=== PATIENT | male | born 1950 | race Caucasian/White ===

== ENCOUNTER 2022-09-25 00:12 | Inpatient (IN) | payer OTHER, SELFPAY ==
[2022-09-25] VITALS (10 sets, daily range): BP systolic 119–176; BP diastolic 62–97; PULSE 86–102; RESP 14–18; TEMP 36.5–37.7; O2SAT 93–96; BMI 30.5; BMI 28.9
--- NOTE | 2022-09-25 00:46 | CT_ITS ---
EXAM: CT LEFT LOWER EXTREMITY WITHOUT INTRAVENOUS CONTRAST CLINICAL INDICATION: knee swelling TECHNIQUE: Helically acquired images were obtained of the left lower extremity without intravenous contrast. 2-D reformats were performed by the technologist. This CT exam was performed using one or more of the following dose reduction techniques: automated exposure control, adjustment of the mA and/or kV according to patient size, and/or use of iterative reconstruction technique. This report was created using [employer] report generation technology. CONTRAST: IV 100mL Isovue-370 COMPARISON: None. FINDINGS: BONES/JOINTS: Unremarkable. No acute fracture. No subluxation. Normal alignment. No sclerotic or destructive changes. No effusion or other abnormality identified within the joint space. SOFT TISSUES: Prepatellar subcutaneous inflammation and rim-enhancing fluid collection, measuring 4 x 1.2 x 1 cm. No air within the soft tissues. No radiopaque foreign body. CT/Extremity Lower WITH Contrast IMPRESSION: 1. Prepatellar subcutaneous inflammation and rim-enhancing fluid collection, measuring 4 x 1.2 x 1 cm. This likely indicates an abscess. 2. No effusion or other abnormality identified within the joint space. 3. No acute osseous abnormality. Electronically Signed: Fredrick Barrera MD at 2:24 EST ,
[2022-09-25] MEDS: Morphine 4 MG/ML Syringe IV (00:56)
[2022-09-25] MEDS: 0.9% Normal Saline 1,000 ML 999 ML IV ×2 (00:56→03:01)
[2022-09-25] MEDS: Ondansetron 4 MG/2 ML Vial IV (00:56)
--- NOTE | 2022-09-25 01:23 | ED.VIS.LOWEX ---
HPI History of Present Illness Chief Complaint: Lower Extremity Injury Narrative Narrative: 71-year-old male presenting with left knee pain. He states that last Saturday he was drugged by a horse injuring the left knee. He had some superficial abrasions. Initially able to ambulate but did have some pain. He notes increased swelling to the patella since then. He has trouble with weightbearing. Patient states he saw his primary care physician today who gave him a strong shot. He put him on Bactrim as well. Patient states that the pain increased that he was put come to the emergency room. He was not referred to orthopedics. [facility] Home Medications NK 09/25/22 [History Last Taken Unknown] Allergy/AdvReac Type Severity Reaction Status Date / Time No Known Allergies Allergy Verified 06/05/16 11:59 Surgical History (Updated 09/25/22 @ 00:18 by Khanh Bourgeois) Hx of appendectomy Social History Smoking Status: Never smoker ROS ROS ED Constitutional Constitutional ED: Denies chills, fever(s) or sweats Eyes Eyes: Denies blurry vision or change in vision ENT ENT ED: Denies ear pain or sore throat Cardiovascular Cardiovascular: Denies chest pain, palpitations or racing heartbeat Respiratory/Chest Respiratory/Chest: Denies cough, dyspnea or sputum Gastrointestinal Gastrointestinal: Denies abdominal pain, constipation, diarrhea, nausea or vomiting Genitourinary Genitourinary ED: Denies dysuria, hematuria or urinary frequency Musculoskeletal Musculoskeletal: Reports other Details: Left knee pain and swelling ; Denies arthralgias Integumentary Denies abscess, Abrasions or rash Neurologic Neurologic: Denies headache(s), paresthesias or weakness Psychiatric Psychiatric: Denies anxiety, depression, suicidal ideation or suicidal thoughts Endocrine Endocrinology: Denies polydipsia or polyuria EXAM Physical Exam Const Vital Signs: 09/25/22 00:13 09/25/22 00:17 09/25/22 03:35 Temperature 97.7 F L 97.7 F L 99.7 F H Temperature Source Oral Oral Oral Pulse Rate 97 97 100 Respiratory Rate 16 18 18 Blood Pressure 176/92 H 176/92 H 153/91 H Blood Pressure Mean 120 120 111 Pulse Ox 93 96 95 Oxygen Delivery Method Room Air Room Air Room Air Positive well nourished General Appearance ED: NAD HEENT Reports moist mucous membranes Eyes PERRL Chest Wall inspection of chest normal and palpation of chest normal Resp normal respiratory effort and no retractions Auscultation: Negative for rales, rhonchi or wheezes Cardio regular rate and regular rhythm Neuro oriented x3 and CN's II-XII intact bilaterally Sensorium / Orientation: alert Psych mental status grossly normal Skin Skin Narrative: Increased warmth and swelling over the left patella. The bursa is swollen. There is a superficial abrasion overlying the patella. Extensor mechanism is intact. MDM MDM MDM Narrative Medical decision making narrative: 71-year-old male presenting with left knee swelling. I suspect this is bursitis of the prepatellar bursitis however when infection is in the differential. Will obtain lab work and imaging. Medicated with morphine and Zofran. CBC shows slight leukocytosis at 13.8. Hemoglobin hematocrit are stable. Platelets are normal. ESR is not elevated but CRP is slightly elevated at 12.7. Renal function electrolytes within normal limits. LFTs unremarkable. I did obtain a CT of the left knee which shows concern for abscessed bursa on the left. Patient will need to be admitted for pain control as he can no longer ambulate. I have low suspicion for septic knee although I do believe he has an infected bursitis. Discussed with Dr. Christopher Osorio who recommended aspirating the knee. The left knee was prepped and draped in usual sterile fashion. Was cleansed with ChloraPrep. Lidocaine 3 cc for anesthesia with good anesthesia achieved. Lateral approach to the left bursa and obtained about 4 cc of fluid. No other aspirate could be gained. This was sent to the lab. Patient will be started on antibiotics and he was admitted to the hospitalist. Impression: 1. Septic bursitis left knee 2. Inability to ambulate 3. Leukocytosis Lab Data Attestation: I reviewed the patient's lab results. Labs: Laboratory Results - last 24 hr 09/25/22 09/25/22 09/25/22 00:55 00:55 00:55 WBC 13.8 H RBC 4.67 Hgb 14.4 Hct 43.4 MCV 92.9 MCH 30.8 MCHC 33.2 RDW Std Deviation 46.5 H RDW Coeff of Guilherme 13.4 Plt Count 192 MPV 10.1 Immature Gran % (Auto) 0.400 Neut % (Auto) 84.8 H Lymph % (Auto) 6.6 L [place] % (Auto) 7.9 Eos % (Auto) 0.1 Baso % (Auto) 0.2 Absolute Neuts (auto) 11.7 H Absolute Lymphs (auto) 0.91 Nucleated RBC % 0.1 ESR 13 Sodium 137 Potassium 4.4 Chloride 104 Carbon Dioxide 26.0 Anion Gap 7 BUN 21 H Creatinine 0.86 Estim Creat Clear Calc 75.12 Est GFR (MDRD) Af Amer 112 Est GFR (MDRD) Non-Af 92 BUN/Creatinine Ratio 24.3 H Glucose 146 H Calcium 9.0 Total Bilirubin 0.50 AST 42 H ALT 60 Alkaline Phosphatase 61 C-React Prot Ext Range 12.70 H Total Protein 7.6 Albumin 4.0 Globulin 3.6 Albumin/Globulin Ratio 1.1 Radiography Diagnostic Testing: Clinical Impression(s) from Imaging Studies Lower Extremity CT 09/25/22 00:46 IMPRESSION: 1. Prepatellar subcutaneous inflammation and rim-enhancing fluid collection, measuring 4 x 1.2 x 1 cm. This likely indicates an abscess. 2. No effusion or other abnormality identified within the joint space. 3. No acute osseous abnormality. Electronically Signed: Fredrick Barrera MD at 2:24 EST , Discharge Plan Triage Chief Complaint: Lower Extremity Injury ED Provider: Baron Sun Dx/Rx/DC Orders Prescriptions: No Action NK Primary Care Provider: Fransisco Singh Referrals: [facility] Doctor,Out of [Non-Staff] -
[2022-09-25 01:30] LABS: Erythrocyte Sedimentation Rate 13 mm/hr (0-20)
[2022-09-25 01:35] LABS: ALB/GLOB Ratio 1.1 RATIO (0.9-2.4); AST(SGOT) 42 U/L (15-37); Alanine Aminotransfer ALT/SGPT 60 U/L (16-61); Alkaline Phosphatase 61 U/L (45-117); Anion Gap 7 (5-15); BUN 21 mg/dL (7-18); BUN/Creat Ratio 24.3 RATIO (10-20); Chloride 104 mmol/L (98-107); Creatinine, Serum 0.86 mg/dL (0.70-1.30); EST Glomerular Filtration Rate 92 mL/min (>60); Est Glom Filt Rate - Afr Amer 112 mL/min (>60); Estimated Creatinine Clearance 75.12 ml/min; Globulin 3.6 g/dL (2.2-4.2); Glucose 146 mg/dL (74-106); Potassium 4.4 mmol/L (3.5-5.1); Protein, Total 7.6 g/dL (6.4-8.2); Sodium Level 137 mmol/L (136-145)
[2022-09-25 01:52] LABS: Absolute Lymphocyte Count 0.91 X10^3/uL (0.83-4.51); Absolute Neutrophil Count 11.7 X10^3/uL (2.0-7.7); Basophil# 0.03 X10^3/uL; Basophil% 0.2 % (0-1); Eosinophil# 0.01 X10^3/uL; Eosinophils% 0.1 % (0-5); Hematocrit 43.4 % (40-54); Hemoglobin 14.4 g/dL (13.0-16.5); Lymphocyte # 0.91 X10^3/ul (0.83-4.51); Lymphocyte % 6.6 % (19-41); Mean Corp Hgb Conc 33.2 g/dL (32-36); Mean Corpuscular Hgb 30.8 pg (27.0-32.0); Mean Corpuscular Volume 92.9 fL (80-94); Mean Platelet Vol. 10.1 fl (6.2-12.0); Monocyte# 1.09 X10^3/uL; Monocyte% 7.9 % (0-10); NRBC Flagged by Analyzer 0.1 % (0-5); Neutrophil # 11.72 X10^3/uL (2.7-7.7); Neutrophil % 84.8 % (47-70); Platelet Count 192 K/mm3 (150-450); RBC Distribution Width CV 13.4 % (11.6-14.6); RBC Distribution Width SD 46.5 fl (35.1-43.9); Red Blood Count 4.67 M/mm3 (4.6-6.2); White Blood Count 13.8 K/mm3 (4.4-11.0)
--- NOTE | 2022-09-25 04:23 | HP.PCM.HOS_ITS ---
HPI - General General Date of Admission: 09/25/22 Date of Service: 09/25/22 Chief Complaint: Left knee pain HPI Narrative JOLIE PAULA, is a 71 M w/ pmh of kidney stones who presented to [facility] 09/25/2022 with left knee pain. About a week and a half ago he was outside with his horse when he was dragged on the ground and had some superficial abrasions of his left knee. He did continue to work and done okay until this past 24 hours when he began having difficulty bearing weight on this leg.He also increased warmth and swelling. He went to his primary care physician's office and got something stronger as a shot and Bactrim which she only took 1 pill of however due to his inability to ambulate he presented to the ED. In the ERHe had a white count of 13.8 and a CRP of 12.7 but labs otherwise unremarkable. He did have a CT of the knee which showed possible abscess collection. It was drained in the ED by Dr. Sun after he contacted Ortho and he was given fluids, cefazolin, vancomycin,however given his inability to ambulate hospitalist consulted for admission. Seen with family member at bedside and he reports no fevers or chills, no pain anywhere else, does have pain with his knee with both active and passive motion primarily over his patella but some in the other surrounding areas as well with some swelling and small pustules that have not been draining. He denies any other complaints. [facility] Medical History (Updated 09/25/22 @ 05:35 by Beatris Cota) Kidney stones Home Medications NK 09/25/22 [History Last Taken Unknown] Allergy/AdvReac Type Severity Reaction Status Date / Time No Known Allergies Allergy Verified 06/05/16 11:59 Surgical History (Updated 09/25/22 @ 00:18 by Khanh Buorgeois) Hx of appendectomy Social History Smoking Status: Never smoker ROS ROS Narrative General: Denies fever or chills, denies weight change HENT: Denies headache, denies stuffy nose, denies sore throat EYES: Denies changes in vision Resp: Denies cough, denies shortness of breath Cardiac: Denies chest pain GI: Denies abdominal pain, denies changes in bowel, denies nausea, denies vomiting : Denies changes in urination Extremity: Has some swelling around his left knee primarily in the prepatellar area MSK: Denies weakness Neuro: Denies any numbness, denies tingling Heme: Denies any bleeding or bruising Skin: Has some small pustules over anterior left knee andWhat appeared to be some petechia near the medial aspect without erythema or active drainage, Superficial abrasion on anterior knee without erythema or active drainage. Psychiatric: No complaints voiced Vital Signs Vital Signs Vital Signs: 09/25/22 00:13 09/25/22 00:17 09/25/22 03:35 Temperature 97.7 F L 97.7 F L 99.7 F H Temperature Source Oral Oral Oral Pulse Rate 97 97 100 Respiratory Rate 16 18 18 Blood Pressure 176/92 H 176/92 H 153/91 H Blood Pressure Mean 120 120 111 Pulse Ox 93 96 95 Oxygen Delivery Method Room Air Room Air Room Air Weight Weight: 91.1 kg Body Mass Index (BMI) 30.5 Physical Exam Narrative General: Alert, oriented, no apparent distress HEENT: Atraumatic, normocephalic Eyes: Anicteric, normal conjunctiva, extraocular movements grossly intact Neck: Supple Respiratory: Clear to auscultation bilaterally, normal respiratory effort Cardiovascular: Regular rate and rhythm GI: Soft, nontender, nondistended Extremities: Area from just above left knee to mid thakkar somewhat warm with swelling primarily in the prepatellar area. No erythema but does have what appeared with some petechiae on the medial aspect, superficial abrasion on the anterior without active drainage, several small pustules scattered over patella without active drainage, diffusely tender but primarily over patella Musculoskeletal: Moving all extremities though the left is limited due to pain Neuro: No overt focal neurological deficits Skin: As above Psych: Cooperative Results Lab / Micro Data Result Diagrams: 09/25/22 00:55 09/25/22 00:55 Labs: Laboratory Results - last 24 hr 09/25/22 00:55: ESR 13 09/25/22 00:55: Sodium 137, Potassium 4.4, Chloride 104, Carbon Dioxide 26.0, Anion Gap 7, BUN 21 H, Creatinine 0.86, Estim Creat Clear Calc 75.12, Est GFR (MDRD) Af Amer 112, Est GFR (MDRD) Non-Af 92, BUN/Creatinine Ratio 24.3 H, Glucose 146 H, Calcium 9.0, Total Bilirubin 0.50, AST 42 H, ALT 60, Alkaline Phosphatase 61, C-React Prot Ext Range 12.70 H, Total Protein 7.6, Albumin 4.0, Globulin 3.6, Albumin/Globulin Ratio 1.1 09/25/22 00:55: WBC 13.8 H, RBC 4.67, Hgb 14.4, Hct 43.4, MCV 92.9, MCH 30.8, MCHC 33.2, RDW Std Deviation 46.5 H, RDW Coeff of Guilherme 13.4, Plt Count 192, MPV 10.1, Immature Gran % (Auto) 0.400, Neut % (Auto) 84.8 H, Lymph % (Auto) 6.6 L, [place] % (Auto) 7.9, Eos % (Auto) 0.1, Baso % (Auto) 0.2, Absolute Neuts (auto) 11.7 H, Absolute Lymphs (auto) 0.91, Nucleated RBC % 0.1 Radiology Impression Lower Extremity CT 09/25/22 00:46 IMPRESSION: 1. Prepatellar subcutaneous inflammation and rim-enhancing fluid collection, measuring 4 x 1.2 x 1 cm. This likely indicates an abscess. 2. No effusion or other abnormality identified within the joint space. 3. No acute osseous abnormality. Electronically Signed: Fredrick Barrera MD at 2:24 EST , Assessment & Plan Assessment/Plan (1) Left knee pain: PLAN: Plan #Left knee pain -Likely secondary to prepatellar septic bursitis based on CT findings versus abscess, per CT in the ED prepatellar subcutaneous inflammation rim-enhancing fluid collection, measuring 4 x 1.2 x 1 cm. This likely indicates an abscess -Did have left knee bursa aspirated in ED, awaiting results, preliminary results indicating infection -Blood culture and bursa culture sent and pending -Given rapid progression of symptoms with elevated white count and slightly elevated CRP will start IV antibiotics vanc and cefazolin and given significant clinical findings as well as concern for possible abscess will consult orthopedics -s/p 2L IV , will order maintenance to run for 1 more L #DVT ppx: Lovenox Leanne Harris MD Time spent in the patient's overall evaluation,decision-making process, review of diagnostic data, adjustment of management, discussion with other providers, nursing nursing and ancillary staff involved in patient's care documentation, 60 minutes Charges/Coding Visit Charges Inpatient E&M: 52597 Init Hosp L2
[2022-09-25] MEDS: Cefazolin 2 GM in 0.9% Normal Saline 100 ML IV ×3 (04:50→21:44)
[2022-09-25] MEDS: Lidocaine 1% (20 ml mdv) 20 ML Vial INFILT (04:51)
[2022-09-25 05:05] LABS: Synovial Fld Mononuclear WBC # 0.088 10^3/ul; Synovial Fld Mononuclear WBC % 4.4 %; Synovial Fld Polynuclear WBC # 1.914 10^3/uL; Synovial Fld Polynuclear WBC % 95.6 %
[2022-09-25 05:09] LABS: RBC /Synovial Fluid 0.003 10^6/uL (0)
[2022-09-25 05:20] LABS: Source / Synovial Fluid LFT KNEE; Viscosity / Synovial Fluid Mod. Viscous (HIGH)
[2022-09-25 05:21] LABS: Appearance /Synovial Fluid Clear (CLEAR); Color / Synovial Fluid Yellow (Pale Yellow)
[2022-09-25 05:26] LABS: AUTO B FLUID DILUENT BKGD CT WBC <0.1 RBC <0.01 (W<.1,R<.01)
[2022-09-25] MEDS: Acetaminophen 500 MG Tablet 1000 MG PO ×3 (05:57→21:45)
[2022-09-25] MEDS: oxyCODONE 5 MG Tablet PO ×3 (05:57→21:47)
[2022-09-25 06:06] LABS: Body Fluid QC Type(s) BF1Q; Lymph 2 %; Neutrophil 99 % (0-25)
--- NOTE | 2022-09-25 06:06 | PCM.RX.CS ---
Consult Pharmacy has been consulted to manage selected antiobiotic: Vancomycin Type of Consult: New start Suspected Infection: Skin/Soft tissue Prior Doses of Antibiotics Received/Current Regimen: Medications Vancomycin HCl 1,250 mg/ (Sodium Chloride) 275 mls @ 167 mls/hr IV Q12H NELSY Vancomycin HCl 2,000 mg/ (Sodium Chloride) 540 mls @ 250 mls/hr IV X1 ONE Stop: 09/25/22 06:43 Last Admin: 09/25/22 05:58 Dose: 250 mls/hr Labs: Sodium 137 mmol/L (136-145) 09/25/22 00:55 Potassium 4.4 mmol/L (3.5-5.1) 09/25/22 00:55 Chloride 104 mmol/L (98-107) 09/25/22 00:55 Carbon Dioxide 26.0 mmol/L (21.0-32.0) 09/25/22 00:55 Anion Gap 7 (5-15) 09/25/22 00:55 BUN 21 mg/dL (7-18) H 09/25/22 00:55 Creatinine 0.86 mg/dL (0.70-1.30) 09/25/22 00:55 Est GFR (MDRD) Af Amer 112 mL/min (>60) 09/25/22 00:55 Est GFR (MDRD) Non-Af 92 mL/min (>60) 09/25/22 00:55 BUN/Creatinine Ratio 24.3 RATIO (10-20) H 09/25/22 00:55 Glucose 146 mg/dL (74-106) H 09/25/22 00:55 Weight used for dosin.3 kg Estimated Creatinine Clearance: 75 Goal Trough: 15-20 mcg/mL Pharmacy Plan for Drug Dosing: Pharmacy Service will continue to monitor and adjust dosing as required. Follow-Up Labs: Trough Vancomycin Labs to be done on [date and time ordered]: 09/26/22 @4662
[2022-09-25 06:51] LABS: AST(SGOT) 42 U/L (15-37); Alanine Aminotransfer ALT/SGPT 50 U/L (16-61); Albumin, Serum 3.4 g/dL (3.2-5.0); Alkaline Phosphatase 56 U/L (45-117); Anion Gap 6 (5-15); BUN 16 mg/dL (7-18); BUN/Creat Ratio 18.7 RATIO (10-20); Calcium,Total 8.4 mg/dL (8.5-10.1); Chloride 106 mmol/L (98-107); Creatinine, Serum 0.86 mg/dL (0.70-1.30); EST Glomerular Filtration Rate 93 mL/min (>60); Est Glom Filt Rate - Afr Amer 113 mL/min (>60); Estimated Creatinine Clearance 75.12 ml/min; Globulin 3.3 g/dL (2.2-4.2); Glucose 122 mg/dL (74-106); Protein, Total 6.7 g/dL (6.4-8.2); Sodium Level 137 mmol/L (136-145)
[2022-09-25] MEDS: 0.9% Normal Saline 1,000 ML 100 ML IV (07:22)
--- NOTE | 2022-09-25 10:35 | CASEMGMT ---
RN RODRIGUE Face to Face with patient for initial transition planning/care coordination assessment. RN CM introduced self and role at [facility]. Patient lying in bed, alert and orientedwife at bedside. Patient willing to participate in assessment and is able to answer all questions appropriately. Care providers, pharmacy, and demographics verified. Patient wishes to discharge home, denies need for home health at this time. Patient states he has no further needs or concerns at this time. CM to follow for discharge planning needs that may arise. PCP: [place] Specialists: none [facility] [place] [facility] [place] Benef[place]: none Living Will/HPOA: none LNOK: Living Arrangements: Patient lives with in a in 3 story home with bed and bath on main level, 1 step to enter the home. Patient is independent at home. Transportation: Driving service DME/HHC: Patient has cane and grab bars at home. No previous HHC or SNF Disposition Plan: Patient to discharge home with family support and follow-up plans in place. Lisbeth PERRY, RN, CM
[2022-09-25] MEDS: Enoxaparin 40 MG/0.4 ML Syringe SC (10:38)
--- NOTE | 2022-09-25 11:27 | WOUNDNOTE ---
wound photo: left knee
--- NOTE | 2022-09-25 12:19 | VDLE_ITS ---
Reason For Study: pain Procedure LEFT This is a venous duplex using B-mode, color GSV is normal. flow and spectral Doppler. CFV is compressible, spontaneous, phasic, Exam performed portable in patient room. competent, and demonstrates normal The exam was abbreviated due to the COVID 19 augmentation. protocol. FV is compressible, spontaneous, phasic, The exam was diagnostic. competent and demonstrates normal A preliminary report was called and/or faxed augmentation. to the pt's RN. POP V is compressible, spontaneous, phasic, competent and demonstrates normal augmentation. T/P Trunk is compressible. PTV is compressible. LT PerV is compressible. VL/Venous Duplex US, Unilateral Interpretation Summary Deep veins of the left lower extremity are patent and compressible segmentally. There is no evidence of left lower extremity deep vein thrombosis. The left great saphenous vein mack ears patent and compressible segmentally. Ordering Physician: Nery Tapia Performed By: Aleks Singh RVT
--- NOTE | 2022-09-25 12:50 | PN.HOSP_ITS ---
Reason for Visit Reason for Visit: Diagnoses Pain in left knee (09/25/22) Subjective Subjective Patient seen and examined. Pain in left knee is improving. He denies any fever, chills, increased discharge from knee. He does admit to left calf pain. Review of systems is otherwise negative. Objective Data Objective Data Vital Signs: Vital Signs Temp Pulse Resp BP Pulse Ox O2 Del Method 98.5 F 86 14 119/62 93 Room Air 09/25/22 09:38 09/25/22 09:40 09/25/22 09:38 09/25/22 09:38 09/25/22 09:38 09/25/22 09:40 Oxygen Delivery Method Room Air Weight: 190 lb 4.8 oz Body Mass Index (BMI) 28.9 Intake & Output: Intake and Output for Last 24 Hours 09/23/22 09/24/22 09/25/22 23:59 23:59 23:59 Intake Total 2650.5 / 2650.5 Output Total 200 / 200 Balance 2450.5 / 2450.5 Lab / Micro Data Result Diagrams: 09/25/22 00:55 09/25/22 05:48 Labs: Laboratory Results - last 24 hr 09/25/22 00:55: ESR 13 09/25/22 00:55: Sodium 137, Potassium 4.4, Chloride 104, Carbon Dioxide 26.0, Anion Gap 7, BUN 21 H, Creatinine 0.86, Estim Creat Clear Calc 75.12, Est GFR (MDRD) Af Amer 112, Est GFR (MDRD) Non-Af 92, BUN/Creatinine Ratio 24.3 H, Glucose 146 H, Calcium 9.0, Total Bilirubin 0.50, AST 42 H, ALT 60, Alkaline Phosphatase 61, C-React Prot Ext Range 12.70 H, Total Protein 7.6, Albumin 4.0, Globulin 3.6, Albumin/Globulin Ratio 1.1 09/25/22 00:55: WBC 13.8 H, RBC 4.67, Hgb 14.4, Hct 43.4, MCV 92.9, MCH 30.8, MCHC 33.2, RDW Std Deviation 46.5 H, RDW Coeff of Guilherme 13.4, Plt Count 192, MPV 10.1, Immature Gran % (Auto) 0.400, Neut % (Auto) 84.8 H, Lymph % (Auto) 6.6 L, [place] % (Auto) 7.9, Eos % (Auto) 0.1, Baso % (Auto) 0.2, Absolute Neuts (auto) 11.7 H, Absolute Lymphs (auto) 0.91, Nucleated RBC % 0.1 09/25/22 04:20: Synovial Source LFT KNEE, Synovial Color Yellow, Synovial Appearance Clear, Synovial Viscosity Mod. Viscous, Synovial WBC 2.0020 H, Synovial RBC 0.003 H, Synovial Tot Cell Ct 2.0320 H, Synov Polynuclear WBCs 1.914, Synov Mononuclear WBCs 0.088, Synovial Neutrophils 99 H, Synovial Lymphocytes 2, Synovial Polynuclear % 95.6, Synovial Mononuclear % 4.4, Synovial Path Comment December follow 09/25/22 05:48: Sodium 137, Potassium 4.0, Chloride 106, Carbon Dioxide 25.0, Anion Gap 6, BUN 16, Creatinine 0.86, Estim Creat Clear Calc 75.12, Est GFR (MDRD) Af Amer 113, Est GFR (MDRD) Non-Af 93, BUN/Creatinine Ratio 18.7, Glucose 122 H, Calcium 8.4 L, Total Bilirubin 0.50, AST 42 H, ALT 50, Alkaline Phosphatase 56, C-React Prot Ext Range 33.00 H, Total Protein 6.7, Albumin 3.4, Globulin 3.3, Albumin/Globulin Ratio 1.0 Radiography Diagnostic Testing: Radiology Impression Lower Extremity CT 09/25/22 00:46 IMPRESSION: 1. Prepatellar subcutaneous inflammation and rim-enhancing fluid collection, measuring 4 x 1.2 x 1 cm. This likely indicates an abscess. 2. No effusion or other abnormality identified within the joint space. 3. No acute osseous abnormality. Electronically Signed: Fredrick Barrera MD at 2:24 EST , Physical Exam Const alert HEENT head/scalp atraumatic, moist oral mucous membranes and oropharynx normal Head and Scalp: normocephalic Mouth: oral and palatal mucosa normal Eyes PERRL and EOMs intact bilaterally Neck no lymphadenopathy and supple Resp normal respiratory effort, no retractions and no use of accessory muscles Cardio regular rate, regular rhythm, S1 normal heart sound, S2 normal heart sound and no murmurs GI normal to inspection, nondistended, normoactive bowel sounds, soft to palpation, non-tender and non-distended Extremity full ROM Extremity Narrative: Left knee swollen,erythematous, mildly tender, intact dressing over left knee. Left calf tender, swollen. Skin Skin Narrative: as under extremity Neuro oriented x3, CN's II-XII intact bilaterally and moves all extremities Sensorium / Orientation: awake and alert Motor Exam: strength 5/5 throughout Psych affect normal Assessment & Plan Assessment/Plan (1) Left knee pain: PLAN: Plan #Left knee abscess * s/p I &D in the ED. * wbc is 13.8 * imaging showed possible abscess collection of the left knee * on IV vancomycin and cefazolin * cultures pending * orthopedic surgery consulted * DUplex of LLE ordered o/a of LLE swelling. * on PO tylenol and IV morphine prn for pain DVT prophylaxis: lovenox Charges/Coding Visit Charges Inpatient E&M: 93842 Subs Hosp L2
[2022-09-25 14:54] LABS: Pathologist Comment Reviewed
--- NOTE | 2022-09-25 16:34 | CHAPLAIN ---
Type of Pastoral Visit _x__ Initial Visit ___ Follow-up Visit ___ On-call Visit ___ General Patient Visit ___ Spiritual Assessment ___ Family Conference ___ Bereavement ___ Rapid Response ___ Code Blue ___ Other (describe below) Pastoral Care Referral From _x__ Patient ___ Family ___ Nurse ___ Physician ___ Craniologist ___ Inclusion Specialist ___ Other (describe below) Sacrament/Intervention _x__ Active listening ___ Anointing ___ Druze ___ Bereavement ___ Communion ___ Abeba exploration ___ ___ Life review _x__ Prayer ___ Reconciliation ___ Sacrament of Sick ___ Supportive presence ___ Wedding ___ Other (describe below) Pastoral Comments patient and spouse are in room; pt does not say much but welcomes offer of support and agrees to a prayer; spouse states that his pain has decreased some; pt states he does not know what to ask stretcher operator as this is a new experience being in the hospital; asked how pt is coping and he said he was fine at this time
--- NOTE | 2022-09-25 17:01 | PCM.CONS.GEN ---
Assessment & Plan Assessment/Plan (1) Bursitis of left knee: PLAN: His diagnosis and treatment options regarding his left knee contusion, abrasion, traumatic prepatellar bursitis, possible septic bursitis discussed with them at length. After prolonged discussion he did wish to have the knee repeat aspirated. He will continue on IV antibiotics per the hospitalist service. Can use an Oswaldo wrap for compression. Ice if needed. I have recommended mupirocin antibiotic ointment over his abrasion. Understand if the infection does not resolve surgery could be considered. This point he seems to be improving nonoperatively with appropriate treatment, antibiotics. Can be weightbearing as tolerated on left knee. Can do knee motion as tolerated. Noted possibility for repeat aspirations discussed. They understand infection can be limb or life-threatening. I will plan to reevaluate him tomorrow. If Patient does not rapidly improve on current treatment, I would recommend an infectious disease consultation Procedure: After obtaining appropriate consent patient's left knee was prepped with Betadine and alcohol. I aspirated his left knee prepatellar bursa with an 18-gauge needle and obtained a scant amount of thickened fluid. Approximately 2 cc. This was discarded. Sterile bandage and Oswaldo wrap applied. Patient tolerated the procedure well. HPI Consult Data Date of Consult: 09/25/22 HPI Narrative HPI Narrative: JOLIE PAULA, is a 71 M who presents with significant knee pain and swelling. Patient states 13 days ago, September 12, he was drugged by a horse. He did pain a abrasion over the knee. He did have pain and swelling. He continued to work. He states over the weekend he had increasing pain and swelling at the knee. By September 24 his pain was severe, 10 out of 10. He came into his primary care doctor's office and was treated with a antibiotic shot, antibiotic pills. However he did not significantly improved. Therefore he went to the emergency room. He was admitted to the medical staff. Orthopedics was consulted. Patient denies fever or chills. Has tried some pain relieving ointment, BFC. Pain was so severe he could not really walk. Pain currently 6 out of 10. Patient has been walking in his room with a walker. [facility] Medical History (Updated 09/25/22 @ 17:[address] Christopher Osorio MD) Kidney stones Home Medications NK 09/25/22 [History Last Taken Unknown] Allergy/AdvReac Type Severity Reaction Status Date / Time No Known Allergies Allergy Verified 06/05/16 11:59 Surgical History (Updated 09/25/22 @ 00:18 by Khanh Bourgeois) Hx of appendectomy Social History Smoking Status: Never smoker ROS ROS Narrative Denies recent changes to eyes ears nose or throat heart or lungs bowel or bladder. Pain at the anterior left knee. Physical Exam Narrative He has a superficial abrasion over the superior pole of the patella. No obvious expressible drainage or foul odor. Left knee has no obvious knee effusion. Left knee motion is 0-90 degrees with pain. He is able to hold his left knee extended against gravity. He has some mild fluctuance at the prepatellar bursa. Thickening of the skin over the patellar region. Diffuse redness, hyperemia. No calf pain. Negative Homans' sign. No hip pain with motion. Negative straight leg raise. Legs are neurovascular intact no joint line tenderness at the medial lateral compartment. Does have pain anterior to the patella. CT scan of the knee has been reviewed showing fluid within his prepatellar bursa. No significant knee joint effusion. Laboratory work and vital signs reviewed Had been discussed with the ER physician. Case had been discussed with his nurse. Lab / Micro Data Result Diagrams: 09/25/22 00:55 09/25/22 05:48 Labs: Laboratory Results - last 24 hr 09/25/22 00:55: ESR 13 09/25/22 00:55: Sodium 137, Potassium 4.4, Chloride 104, Carbon Dioxide 26.0, Anion Gap 7, BUN 21 H, Creatinine 0.86, Estim Creat Clear Calc 75.12, Est GFR (MDRD) Af Amer 112, Est GFR (MDRD) Non-Af 92, BUN/Creatinine Ratio 24.3 H, Glucose 146 H, Calcium 9.0, Total Bilirubin 0.50, AST 42 H, ALT 60, Alkaline Phosphatase 61, C-React Prot Ext Range 12.70 H, Total Protein 7.6, Albumin 4.0, Globulin 3.6, Albumin/Globulin Ratio 1.1 09/25/22 00:55: WBC 13.8 H, RBC 4.67, Hgb 14.4, Hct 43.4, MCV 92.9, MCH 30.8, MCHC 33.2, RDW Std Deviation 46.5 H, RDW Coeff of Guilherme 13.4, Plt Count 192, MPV 10.1, Immature Gran % (Auto) 0.400, Neut % (Auto) 84.8 H, Lymph % (Auto) 6.6 L, [place] % (Auto) 7.9, Eos % (Auto) 0.1, Baso % (Auto) 0.2, Absolute Neuts (auto) 11.7 H, Absolute Lymphs (auto) 0.91, Nucleated RBC % 0.1 09/25/22 04:20: Synovial Source LFT KNEE, Synovial Color Yellow, Synovial Appearance Clear, Synovial Viscosity Mod. Viscous, Synovial WBC 2.0020 H, Synovial RBC 0.003 H, Synovial Tot Cell Ct 2.0320 H, Synov Polynuclear WBCs 1.914, Synov Mononuclear WBCs 0.088, Synovial Neutrophils 99 H, Synovial Lymphocytes 2, Synovial Polynuclear % 95.6, Synovial Mononuclear % 4.4, Synovial Path Comment Reviewed 09/25/22 05:48: Sodium 137, Potassium 4.0, Chloride 106, Carbon Dioxide 25.0, Anion Gap 6, BUN 16, Creatinine 0.86, Estim Creat Clear Calc 75.12, Est GFR (MDRD) Af Amer 113, Est GFR (MDRD) Non-Af 93, BUN/Creatinine Ratio 18.7, Glucose 122 H, Calcium 8.4 L, Total Bilirubin 0.50, AST 42 H, ALT 50, Alkaline Phosphatase 56, C-React Prot Ext Range 33.00 H, Total Protein 6.7, Albumin 3.4, Globulin 3.3, Albumin/Globulin Ratio 1.0 Micro: Microbiology 09/25/22 04:20 Fluid - Synovial (joint) Gram Stain - Final Radiology Impression Lower Extremity CT 09/25/22 00:46 IMPRESSION: 1. Prepatellar subcutaneous inflammation and rim-enhancing fluid collection, measuring 4 x 1.2 x 1 cm. This likely indicates an abscess. 2. No effusion or other abnormality identified within the joint space. 3. No acute osseous abnormality. Electronically Signed: Fredrick Barrera MD at 2:24 EST , Venous Doppler Study 09/25/22 12:19 Interpretation Summary Deep veins of the left lower extremity are patent and compressible segmentally. There is no evidence of left lower extremity deep vein thrombosis. The left great saphenous vein appears patent and compressible segmentally. Ordering Physician: Nery Tapia Performed By: Aleks Singh RVT
[2022-09-25] MEDS: Neomycin/Bacitracin/Polymyxin Ointment 1 APPLIC TOPICAL (21:44)
[2022-09-26] VITALS (7 sets, daily range): BP systolic 127–164; BP diastolic 69–82; PULSE 88–100; RESP 16–20; TEMP 37.3–38; O2SAT 92–96
[2022-09-26] MEDS: Cefazolin 2 GM in 0.9% Normal Saline 100 ML IV ×3 (05:06→21:08)
[2022-09-26] MEDS: Acetaminophen 500 MG Tablet 1000 MG PO ×3 (05:56→21:08)
[2022-09-26 06:37] LABS: Absolute Lymphocyte Count 0.74 X10^3/uL (0.83-4.51); Absolute Neutrophil Count 8.1 X10^3/uL (2.0-7.7); Basophil# 0.02 X10^3/uL; Basophil% 0.2 % (0-1); Eosinophil# 0.03 X10^3/uL; Eosinophils% 0.3 % (0-5); Hematocrit 40.4 % (40-54); Hemoglobin 13.7 g/dL (13.0-16.5); Lymphocyte # 0.74 X10^3/ul (0.83-4.51); Lymphocyte % 7.5 % (19-41); Mean Corp Hgb Conc 33.9 g/dL (32-36); Mean Corpuscular Hgb 31.6 pg (27.0-32.0); Mean Corpuscular Volume 93.1 fL (80-94); Mean Platelet Vol. 9.9 fl (6.2-12.0); Monocyte# 0.87 X10^3/uL; Monocyte% 8.8 % (0-10); NRBC Flagged by Analyzer 0 % (0-5); Neutrophil # 8.14 X10^3/uL (2.7-7.7); Neutrophil % 82.5 % (47-70); Platelet Count 172 K/mm3 (150-450); RBC Distribution Width CV 13.8 % (11.6-14.6); RBC Distribution Width SD 47.2 fl (35.1-43.9); Red Blood Count 4.34 M/mm3 (4.6-6.2); White Blood Count 9.9 K/mm3 (4.4-11.0)
[2022-09-26 07:20] LABS: Anion Gap 5 (5-15); BUN 14 mg/dL (7-18); BUN/Creat Ratio 16.3 RATIO (10-20); Calcium,Total 8.6 mg/dL (8.5-10.1); Chloride 104 mmol/L (98-107); Creatinine, Serum 0.86 mg/dL (0.70-1.30); EST Glomerular Filtration Rate 93 mL/min (>60); Est Glom Filt Rate - Afr Amer 112 mL/min (>60); Estimated Creatinine Clearance 75.12 ml/min; Glucose 112 mg/dL (74-106); Potassium 4.1 mmol/L (3.5-5.1); Sodium Level 136 mmol/L (136-145)
[2022-09-26] MEDS: Neomycin/Bacitracin/Polymyxin Ointment 1 APPLIC TOPICAL ×2 (10:25→21:08)
[2022-09-26] MEDS: Enoxaparin 40 MG/0.4 ML Syringe SC (10:25)
[2022-09-26] MEDS: 0.9% Saline Lock 10 ML Syringe IV (10:26)
--- NOTE | 2022-09-26 10:54 | PCM.PN.ORT ---
Subjective Subjective Patient states his left knee is feeling much better. Pain currently 2 out of 10. He has been regaining better motion. He has been regaining better strength. He denies fever chills or systemic symptoms. Patient is able to ambulate in his room much better. Seen with his present. Objective Data Objective Data Vital Signs: Vital Signs Temp Pulse Resp BP Pulse Ox O2 Del Method 100 F H 88 20 H 127/69 H 96 Room Air 09/26/22 07:30 09/26/22 07:30 09/26/22 07:30 09/26/22 07:30 09/26/22 08:06 09/26/22 08:06 Oxygen Delivery Method Room Air Weight: 86.319 kg Body Mass Index (BMI) 28.9 Intake & Output: Intake and Output for Last 24 Hours 09/24/22 09/25/22 09/26/22 23:59 23:59 23:59 Intake Total 4913.84 / 5113.84 585 / 585 Output Total 1200 / 1200 560 / 560 Balance 3713.84 / 3913.84 Lab / Micro Data Result Diagrams: 09/26/22 05:53 09/26/22 05:53 Labs: Laboratory Results - last 24 hr 09/25/22 04:20: Synovial Path Comment Reviewed 09/26/22 05:53: WBC 9.9, RBC 4.34 L, Hgb 13.7, Hct 40.4, MCV 93.1, MCH 31.6, MCHC 33.9, RDW Std Deviation 47.2 H, RDW Coeff of Guilherme 13.8, Plt Count 172, MPV 9.9, Immature Gran % (Auto) 0.700, Neut % (Auto) 82.5 H, Lymph % (Auto) 7.5 L, [place] % (Auto) 8.8, Eos % (Auto) 0.3, Baso % (Auto) 0.2, Absolute Neuts (auto) 8.1 H, Absolute Lymphs (auto) 0.74 L, Nucleated RBC % 0 09/26/22 05:53: Sodium 136, Potassium 4.1, Chloride 104, Carbon Dioxide 27.0, Anion Gap 5, BUN 14, Creatinine 0.86, Estim Creat Clear Calc 75.12, Est GFR (MDRD) Af Amer 112, Est GFR (MDRD) Non-Af 93, BUN/Creatinine Ratio 16.3, Glucose 112 H, Calcium 8.6 Micro: Microbiology 09/25/22 04:20 Fluid - Synovial (joint) Gram Stain - Final 09/25/22 04:20 Fluid - Synovial (joint) Body Fluid Culture - Preliminary No growth-Final to follow Radiography Diagnostic Testing: Radiology Impression Venous Doppler Study 09/25/22 12:19 Interpretation Summary Deep veins of the left lower extremity are patent and compressible segmentally. There is no evidence of left lower extremity deep vein thrombosis. The left great saphenous vein appears patent and compressible segmentally. Ordering Physician: Nery Tapia Performed By: Aleks Singh RVT Physical Exam Narrative Patient's left knee continues to have an abrasion anteriorly. No drainage. Knee motion is 0-100 degrees. He has grade 5 strength resisted knee flexion extension. He is easily able to hold his left knee extended against gravity today. Much improved since yesterday. He is able to ambulate with a walker comfortably. No calf pain. Negative Homans' sign. No hip pain with motion. No obvious knee joint effusion. No obvious significant fluid collection at the prepatellar bursa. Soft tissue edema, thickening at the site continues. Continued erythema about the site. There has been no progression of the erythema. Gram stain showed 1+ gram-positive cocci. Cultures negative thus far. Assessment & Plan Assessment/Plan (1) Bursitis of left knee: PLAN: His diagnosis and treatment options regarding his left knee probable septic prepatellar bursitis, knee abrasion, cellulitis, discussed with them at length. Patient will continue on IV antibiotics per the hospitalist service. At some point patient most likely will be switched to an oral antibiotic. From an orthopedic standpoint he can be discharged to home when this has occurred. Can be seen as an outpatient. At this point I am not recommending surgery for his bursitis. Patient understands the risk of recurrent infection. He understands if current treatment does not resolve his issue, further IV antibiotics or possible surgical intervention could be considered in the future. Again recommended triple antibiotics ointment to the abrasion site twice a day. I did apply that today. Recommend ice, elevation, Oswaldo wrap.
--- NOTE | 2022-09-26 13:50 | PN.HOSP_ITS ---
Reason for Visit Reason for Visit: Diagnoses Pain in left knee (09/25/22) Other bursitis of knee, left knee (09/25/22) Subjective Subjective Patient seen and examined. He had no complaints today. Pain was well controlled. He had repeat bedside I&D done yesterday by orthopedics . WBC has trended down. Review of systems otherwise negative. Objective Data Objective Data Vital Signs: Vital Signs Temp Pulse Resp BP Pulse Ox O2 Del Method 100 F H 88 20 H 127/69 H 96 Room Air 09/26/22 07:30 09/26/22 07:30 09/26/22 07:30 09/26/22 07:30 09/26/22 08:06 09/26/22 08:06 Oxygen Delivery Method Room Air Weight: 190 lb 4.8 oz Body Mass Index (BMI) 28.9 Intake & Output: Intake and Output for Last 24 Hours 09/24/22 09/25/22 09/26/22 23:59 23:59 23:59 Intake Total 4913.84 / 5113.84 1065 / 1065 Output Total 1200 / 1200 560 / 560 Balance 3713.84 / 3913.84 505 / 505 Lab / Micro Data Result Diagrams: 09/26/22 05:53 09/26/22 05:53 Labs: Laboratory Results - last 24 hr 09/25/22 04:20: Synovial Path Comment Reviewed 09/26/22 05:53: WBC 9.9, RBC 4.34 L, Hgb 13.7, Hct 40.4, MCV 93.1, MCH 31.6, MCHC 33.9, RDW Std Deviation 47.2 H, RDW Coeff of Guilherme 13.8, Plt Count 172, MPV 9.9, Immature Gran % (Auto) 0.700, Neut % (Auto) 82.5 H, Lymph % (Auto) 7.5 L, [place] % (Auto) 8.8, Eos % (Auto) 0.3, Baso % (Auto) 0.2, Absolute Neuts (auto) 8.1 H, Absolute Lymphs (auto) 0.74 L, Nucleated RBC % 0 09/26/22 05:53: Sodium 136, Potassium 4.1, Chloride 104, Carbon Dioxide 27.0, Anion Gap 5, BUN 14, Creatinine 0.86, Estim Creat Clear Calc 75.12, Est GFR (MDRD) Af Amer 112, Est GFR (MDRD) Non-Af 93, BUN/Creatinine Ratio 16.3, Glucose 112 H, Calcium 8.6 Micro: Microbiology 09/25/22 04:20 Fluid - Synovial (joint) Gram Stain - Final 09/25/22 04:20 Fluid - Synovial (joint) Body Fluid Culture - Preliminary No growth-Final to follow Radiography Diagnostic Testing: Radiology Impression Venous Doppler Study 09/25/22 12:19 Interpretation Summary Deep veins of the left lower extremity are patent and compressible segmentally. There is no evidence of left lower extremity deep vein thrombosis. The left great saphenous vein appears patent and compressible segmentally. Ordering Physician: Nery Tapia Performed By: Aleks Singh RVT Physical Exam Const alert, oriented x3 and no apparent distress HEENT head/scalp atraumatic, moist oral mucous membranes and oropharynx normal Head and Scalp: normocephalic Mouth: oral and palatal mucosa normal Eyes PERRL and EOMs intact bilaterally Neck no lymphadenopathy and supple Resp normal respiratory effort, no retractions and no use of accessory muscles Cardio regular rate, regular rhythm, S1 normal heart sound, S2 normal heart sound and no murmurs GI normal to inspection, nondistended, normoactive bowel sounds, soft to palpation, non-tender and non-distended Extremity normal to inspection, full ROM and no clubbing, cyanosis or edema Extremity Narrative: Left knee swollen,erythematous, mildly tender, intact dressing over left knee. Left calf tenderness and swelling has improved. Skin Skin Narrative: as under extremity Neuro oriented x3, CN's II-XII intact bilaterally and moves all extremities Sensorium / Orientation: awake and alert Motor Exam: strength 5/5 throughout Psych affect normal Assessment & Plan Assessment/Plan (1) Left knee pain: PLAN: Plan #Left knee abscess * s/p I &D in the ED. * he had left knee prepatellar bursa aspiration done by orthopedics yesterday * wbc is dwn to ~ 9 * on IV vancomycin and cefazolin * Duplex of LLE was negative for DVT * on PO tylenol and IV morphine prn for pain * mupirocin ointment over abrasion per ortho * weight beare as tolerated on left knee. * DVT prophylaxis: lovenox Charges/Coding Visit Charges Inpatient E&M: 33793 Subs Hosp L2
[2022-09-26] MEDS: oxyCODONE 5 MG Tablet PO ×2 (13:59→21:08)
[2022-09-26] MEDS: Ondansetron 4 MG/2 ML Vial IV (14:20)
[2022-09-26 18:30] LABS: Vancomycin, Trough Level 8.8 ug/mL (5.0-15.0)
--- NOTE | 2022-09-26 19:38 | PCM.RX.CS ---
Consult Pharmacy has been consulted to manage selected antiobiotic: Vancomycin Type of Consult: Follow-up Labs: Sodium 136 mmol/L (136-145) 09/26/22 05:53 Potassium 4.1 mmol/L (3.5-5.1) 09/26/22 05:53 Chloride 104 mmol/L (98-107) 09/26/22 05:53 Carbon Dioxide 27.0 mmol/L (21.0-32.0) 09/26/22 05:53 Anion Gap 5 (5-15) 09/26/22 05:53 BUN 14 mg/dL (7-18) 09/26/22 05:53 Creatinine 0.86 mg/dL (0.70-1.30) 09/26/22 05:53 Est GFR (MDRD) Af Amer 112 mL/min (>60) 09/26/22 05:53 Est GFR (MDRD) Non-Af 93 mL/min (>60) 09/26/22 05:53 BUN/Creatinine Ratio 16.3 RATIO (10-20) 09/26/22 05:53 Glucose 112 mg/dL (74-106) H 09/26/22 05:53 Vancomycin Trough 8.8 ug/mL (5.0-15.0) 09/26/22 17:11 Microbiology: Microbiology 09/25/22 04:20 Fluid - Synovial (joint) Gram Stain - Final 09/25/22 04:20 Fluid - Synovial (joint) Body Fluid Culture - Preliminary No growth-Final to follow Goal Trough: 15-20 mcg/mL Pharmacy Plan for Drug Dosing: VANCOMYCIN LEVEL RECEIVED Current Vancomycin Dose: 1250MG IV Q12HR Number of Doses Received: 4 (3 PRIOR TO TROUGH DRAW) Vancomycin Level: 8.8 Hours Since Last Dose: 10.75HR Renal Function: 0.86 Renal Function Trend: STABLE Lab/Micro: SYNOVIAL FLUID CX GROWING GPC Vancomycin Plan/Comments: Patient had a trough drawn which resulted in a value of 8.8 (goal 15-20). Patient has already had evening dose of vancomycin. Will increase dose to 1750mg IV Q12hr and start 09/27/22 @0500 Pending Level: 09/28/22 @1630 Pharmacy Service will continue to monitor and adjust dosing as required.
[2022-09-26] MEDS: Senna/Docusate Sodium 1 Tablet 2 TABLET PO (21:08)
[2022-09-27 00:30] VITALS: TEMP 37.2
[2022-09-27 03:00] VITALS: BP 118/79; PULSE 79; RESP 16; TEMP 37.3; O2SAT 96
[2022-09-27 06:31] LABS: Absolute Lymphocyte Count 1.32 X10^3/uL (0.83-4.51); Absolute Neutrophil Count 5.2 X10^3/uL (2.0-7.7); Basophil# 0.02 X10^3/uL; Basophil% 0.3 % (0-1); Eosinophil# 0.05 X10^3/uL; Eosinophils% 0.7 % (0-5); Hematocrit 38.5 % (40-54); Hemoglobin 12.9 g/dL (13.0-16.5); Lymphocyte # 1.32 X10^3/ul (0.83-4.51); Lymphocyte % 17.3 % (19-41); Mean Corp Hgb Conc 33.5 g/dL (32-36); Mean Corpuscular Volume 92.5 fL (80-94); Mean Platelet Vol. 9.8 fl (6.2-12.0); Monocyte# 1.03 X10^3/uL; Monocyte% 13.5 % (0-10); NRBC Flagged by Analyzer 0 % (0-5); Neutrophil # 5.16 X10^3/uL (2.7-7.7); Neutrophil % 67.4 % (47-70); Platelet Count 164 K/mm3 (150-450); RBC Distribution Width CV 13.4 % (11.6-14.6); RBC Distribution Width SD 45.9 fl (35.1-43.9); Red Blood Count 4.16 M/mm3 (4.6-6.2); White Blood Count 7.6 K/mm3 (4.4-11.0)
[2022-09-27] MEDS: Acetaminophen 500 MG Tablet 1000 MG PO ×2 (06:42→13:02)
[2022-09-27 07:05] LABS: Anion Gap 5 (5-15); BUN 11 mg/dL (7-18); BUN/Creat Ratio 14.5 RATIO (10-20); Calcium,Total 8.4 mg/dL (8.5-10.1); Chloride 103 mmol/L (98-107); Creatinine, Serum 0.76 mg/dL (0.70-1.30); EST Glomerular Filtration Rate 107 mL/min (>60); Est Glom Filt Rate - Afr Amer 129 mL/min (>60); Glucose 92 mg/dL (74-106); Potassium 3.9 mmol/L (3.5-5.1); Sodium Level 136 mmol/L (136-145)
[2022-09-27] MEDS: Cefazolin 2 GM in 0.9% Normal Saline 100 ML IV ×2 (07:25→13:02)
[2022-09-27 09:00] VITALS: BP 113/60; PULSE 83; RESP 18; TEMP 36.6; O2SAT 96
[2022-09-27 09:14] VITALS: O2SAT 92
[2022-09-27] MEDS: Enoxaparin 40 MG/0.4 ML Syringe SC (09:54)
[2022-09-27] MEDS: Neomycin/Bacitracin/Polymyxin Ointment 1 APPLIC TOPICAL (09:54)
[2022-09-27 10:22] VITALS: O2SAT 92
--- NOTE | 2022-09-27 11:44 | DCINST_ITS ---
Discharge Instructions Diet Discharge Diet: Low fat / Low cholesterol Activity Discharge Activity: Return to Normal Activity Weight Bearing Status: Weight bearing as tolerated Dressing / Incision Call your doctor if your incision/area has: Sudden Increased Bleeding, Increased Pain/ Swelling, Increased Redness, Foul Smelling Discharge and Swelling at the incision site Call your doctor if you observe: Fever of 101 or Higher, Shortness of breath, Swelling in the ankles and Uncontrolled pain Follow Up Care Test Results: Test results from this visit will be discussed in further detail at your follow- up appointment, if applicable. Discharge Plan Admission Admit Date/Time: 09/25/22 09:46 Primary Reason for Your Visit: left knee abscess Attending Provider: Nery Tapia Primary Care Provider: Fransisco Singh Consulting Providers: Christopher Osorio ; Leanne Harris Discharge Orders/Prescriptions Prescriptions: New amoxicillin-pot clavulanate 875-125 mg tablet 1 tab PO BID Qty: 20 0RF Triple Antibiotic 3.5mg-400 unit- 5,000 unit/gram Ointment 1 applic topical BID Qty: 1 0RF Protocol: *Topical Application Instructions APPLICATION INSTRUCTIONS: apply to left knee puncture site. Referrals / Follow Up: Christopher Osorio MD [Med Staff - Active Staff] - Within 1 Week Town Doctor,Out of [Non-Staff] - Fransisco Singh PA [Primary Care Provider] - Disposition Disposition (needs filled in before D/C Order can be placed): Home, Self Care
--- NOTE | 2022-09-27 11:44 | DS.PCM_ITS ---
Providers Date of Admission: 09/25/22 Date of Discharge: 09/27/22 Primary Care Physician: YARELY Thompson Consultations 09/25/22 04:58 Consult: Onc/Wound/medical editor Routine Comment: Reason for Consult:: L knee abcess 09/25/22 05:53 Consult: Orthopedics Routine Consulting Provider: Christopher Osorio Reason for Consult: infected prepatellar bursa vs abscess, significant pain/limitation w/ movem EMERGENT Consult: No MD Notified: Yes Date Notified: 09/25/22 Time Notified: Method of Notification: ED Physician Initiated Reason For Visit: INABILITY TO AMBULATE, KNEE ABSCESS Diagnosis Discharge Diagnosis (1) Left knee pain: Status: Acute Code(s): M25.562 - Pain in left knee Plan #Left knee abscess * s/p I &D in the ED. * he had left knee prepatellar bursa aspiration done by orthopedics yesterday * wbc is dwn to ~ 9 * on IV vancomycin and cefazolin * Duplex of LLE was negative for DVT * on PO tylenol and IV morphine prn for pain * mupirocin ointment over abrasion per ortho * weight beare as tolerated on left knee. * DVT prophylaxis: lovenox Medications at Discharge Home Medications amoxicillin 875 mg-potassium clavulanate 125 mg tablet 1 tab PO BID #20 tabs 09/27/22 neomycin-bacitracn Zn-polymyx 3.5 mg-400 unit-5,000 unit/gram top oint (Triple Antibiotic) 1 applic topical BID #1 g 09/27/22 Hospital Course Operations None Procedures - (aspiration of prepatellar bursitis) Summary of Care Provided Minutes Spent on Discharge: 45 Hospital Course: Patient is a 71-year-old male with a past medical history as outlined was admitted through the ED on 09/25/2022 with a complaint of left knee pain. Patient was also with his horse about a week and a half prior to admission when he fell and was dragged on the ground. He sustained signs for facial abrasions on his left knee. He subsequently noted that he was having difficulty weightbearing on this leg and he had redness, warmth and swelling of his left knee. He went to see his PCP and was given something stronger for pain shot and started on Bactrim. However his symptoms persisted so he came in to the ED where he had an elevated white cell count of 13.8 and CRP of 12.7. CT of the knee showed possible abscess collection. This was drained in the ED by the ED doctor. He was started on IV vancomycin and cefazolin. Patient could not ambulate so he was admitted. Orthopedics was consulted and patient had repeat aspiration of the prepatellar bursa which was thought to contain the infected fluid. Patient symptoms got better. Redness improved as well as swelling. He did have duplex of his left lower extremity which showed no evidence of a blood clot. His symptoms improved. Cultures were negative and white cell count trended down and normalized. Patient was placed on p.o. Augmentin 875 125 mg 1 tablet twice daily for 10 days. He is to follow-up with his primary care doctor and follow-up with orthopedic surgery on outpatient basis. Patient seen and examined prior to discharge. He had no complaints. was by his bedside. Labs and vitals reviewed. Home medication reviewed and reconciled. Physical Exam Const alert, oriented x3 and no apparent distress General Appearance: cooperative and comfortable Orientation / Consciousness: awake Exam Limitations: no limitations HEENT normocephalic, head/scalp atraumatic, hearing grossly normal bilaterally, moist oral mucous membranes and oropharynx normal Mouth: oral and palatal mucosa normal Eyes PERRL and EOMs intact bilaterally Neck no lymphadenopathy and supple Resp normal respiratory effort, no retractions and no use of accessory muscles Cardio regular rate, regular rhythm, S1 normal heart sound, S2 normal heart sound and no murmurs GI normal to inspection, nondistended, normoactive bowel sounds, soft to palpation, non-tender and non-distended Extremity normal to inspection, full ROM and no clubbing, cyanosis or edema Extremity Narrative: Left knee swelling and redness have improved. NO calf tenderness. Skin Skin Narrative: as under extremity Neuro oriented x3, CN's II-XII intact bilaterally and moves all extremities Sensorium / Orientation: awake and alert Motor Exam: strength 5/5 throughout Psych affect normal Weight / BMI Weight Weight: 190 lb 4.8 oz Body Mass Index (BMI) 28.9 ABG / Lab / Microbiology Data Result Diagrams: 09/27/22 05:31 09/27/22 05:31 Laboratory: Laboratory Results - last 24 hr 09/26/22 17:11: Vancomycin Trough 8.8 02/23/23 05:31: WBC 7.6, RBC 4.16 L, Hgb 12.9 L, Hct 38.5 L, MCV 92.5, MCH 31.0, MCHC 33.5, RDW Std Deviation 45.9 H, RDW Coeff of Guilherme 13.4, Plt Count 164, MPV 9.8, Immature Gran % (Auto) 0.800, Neut % (Auto) 67.4, Lymph % (Auto) 17.3 L, [place] % (Auto) 13.5 H, Eos % (Auto) 0.7, Baso % (Auto) 0.3, Absolute Neuts (auto) 5.2, Absolute Lymphs (auto) 1.32, Nucleated RBC % 0 09/27/22 05:31: Sodium 136, Potassium 3.9, Chloride 103, Carbon Dioxide 28.0, Anion Gap 5, BUN 11, Creatinine 0.76, Estim Creat Clear Calc 64.60, Est GFR (MDRD) Af Amer 129, Est GFR (MDRD) Non-Af 107, BUN/Creatinine Ratio 14.5, Gluc ose 92, Calcium 8.4 L Microbiology: Microbiology 09/25/22 00:55 Blood Culture (Wb) - Anticubital Right Blood Culture - Preliminary No growth in 48 hours. 09/25/22 04:20 Fluid - Synovial (joint) Gram Stain - Final 09/25/22 04:20 Fluid - Synovial (joint) Body Fluid Culture - Preliminary No growth-Final to follow 09/25/22 04:20 Fluid - Synovial (joint) Anaerobic Culture - Preliminary No growth in 48 hours. D/C Instructions Discharge Diet: Low fat / Low cholesterol Discharge Activity: Return to Normal Activity Weight Bearing Status: Weight bearing as tolerated Call your doctor if your incision/area has: Continuous Slow Oozing, Sudden Increased Bleeding, Increased Pain/ Swelling, Increased Redness, Foul Smelling Discharge and Swelling at the incision site Call your doctor if you observe: Fever of 101 or Higher, Shortness of breath, Dizziness, Swelling in the ankles, Increased palpitations (irregular heartbeat) and Uncontrolled pain Meaningful Use Info Meaningful Use Diagnoses (Choose all that apply): None applicable Discharge Plan Admission Admit Date/Time: 09/25/22 09:46 Primary Reason for Your Visit: left knee abscess Attending Provider: Nery Tapia Primary Care Provider: Fransisco Singh Consulting Providers: Christopher Osorio ; Leanne Harris Discharge Orders/Prescriptions Prescriptions: New amoxicillin-pot clavulanate 875-125 mg tablet 1 tab PO BID Qty: 20 0RF Triple Antibiotic 3.5mg-400 unit- 5,000 unit/gram Ointment 1 applic topical BID Qty: 1 0RF Protocol: *Topical Application Instructions APPLICATION INSTRUCTIONS: apply to left knee puncture site. Referrals / Follow Up: Christopher Osorio MD [Med Staff - Active Staff] - Within 1 Week Town Doctor,Out of [Non-Staff] - Fransisco Singh PA [Primary Care Provider] - Disposition Disposition (needs filled in before D/C Order can be placed): Home, Self Care Charges/Coding Visit Charges Inpatient E&M: 19668 Disch Hosp >30min
[2022-09-27] MEDS: 0.9% Saline Lock 10 ML Syringe IV (13:02)
[2022-09-27 15:00] VITALS: BP 139/71; PULSE 89; RESP 18; TEMP 37.1; O2SAT 97
== END 2022-09-27 16:12 | disposition home or self-care (01) | DRG 558 ==
LOC: ED 01:23 → PCU 04:40
PROVIDERS: Admitting Provider Internal Medicine; Emergency Provider Student in an Organized Health Care Education/Training Program; PCP Physician Assistant; Visit Provider Student in an Organized Health Care Education/Training Program
DX: M70.52 Other bursitis of knee, left knee (principal); L02.416 Cutaneous abscess of left lower limb; R26.2 Difficulty in walking, not elsewhere classified; D72.829 Elevated white blood cell count, unspecified; S80.212A Abrasion, left knee, initial encounter; M70.42 Prepatellar bursitis, left knee; S00.81XA Abrasion of other part of head, initial encounter; R79.82 Elevated C-reactive protein (CRP); V80.010A Animal-rider injured by fall from or being thrown from horse in noncollision accident, initial encounter
CPT/HCPCS: 36415; 73701; 80048; 80053; 80202; 85025; 86140; 87040; 87070; 87075; 87205; 89050; 89051; 93971; 94668; 97162; 97166; 97530; 97535; 99252; 99284; J7030; J7040; J7050; Q9967; A4216; G0463; J2405

== ENCOUNTER → 2024-08-17 | Outpatient (CLI) | payer SELFPAY, OTHER ==
--- NOTE | 2024-08-17 08:58 | NM_ITS ---
CLINICAL: 73-year-old male with history of apparent carcinoma of unknown primary. WHOLE BODY 99m Tc MDP RADIONUCLIDE BONE SCINTIGRAPHY COMPARISON: FDG PET CT study dated 08/11/2024 FINDINGS: Following the intravenous administration of 27.0 mCi of 99m Tc MDP, whole body bone images reveal: 1. Increased radiopharmaceutical concentration is identified in the left scapula and right hip. 2. Facilitated uptake is noted in the left midfoot, the anteromedial femoral compartment of the right knee, the medial tibial compartment of the left knee, the sternoclavicular compartment of the left shoulder, the acromioclavicular compartments of both shoulders, the mid cervical spine posteriorly on the right, the seventh through 11th thoracic vertebra. 3. Enhanced radiotracer is defined in the left lateral chest wall involving the fourth rib and right anterior chest wall at the costochondral junction involving the fifth rib. 4. The remaining skeletal structures are scintigraphically unremarkable with normal-appearing renal images and urinary bladder activity identified. NM/Bone Scan Whole Body IMPRESSION: 1. Accentuated radiotracer defined in the left scapula and right hip articulation may be further investigated with plain film radiography. 2. The increase in uptake defined in the bilateral ribs is most consistent with trauma-fracture. Plain film radiography correlation may also be of benefit in these locations. 3. 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 Electronically Signed: Sg George DO at 7:50 EST ,
== END | disposition home or self-care (01) ==
LOC: NM 08:58
PROVIDERS: PCP Physician Assistant; Referring Provider Internal Medicine Medical Oncology; Visit Provider Internal Medicine Medical Oncology
DX: M89.8X5 Other specified disorders of bone, thigh (principal)